=== PATIENT | male | born 1980 | race African-American/Black ===

== ENCOUNTER 2019-05-14 17:21 | Emergency (ER) | payer SELFPAY ==
[~2019-05-14] VITALS: Ht 180.3 cm; Wt 108.9 kg
--- NOTE | 2019-05-14 17:20 | NUR ---
ED Nurse Note: patient brought in by ambulance 68 for c/o congestion, fatigue. pt states he took ecstasy pills about 5 hours ago. upon triage, pt also noted with bp 190/100. pt is ambulatory, alert x4.
[2019-05-14 17:21] VITALS: BP 190/100
--- NOTE | 2019-05-14 17:46 | NUR ---
ED Nurse Note: blood sample sent down to lab
[2019-05-14 17:52] VITALS: BP 170/105
--- NOTE | 2019-05-14 17:59 | NUR ---
ED Nurse Note: X RAY BEING TAKEN AT BEDSIDE
[2019-05-14 18:08] VITALS: BP 149/86
[2019-05-14 18:11] LABS: ANION GAP 13 mmol/L (5-15); BLOOD UREA NITROGEN 16 mg/dL (7-18); CALCIUM 9.5 MG/DL (8.5-10.1); CARBON DIOXIDE 23 MMOL/L (21-32); CHLORIDE 101 MMOL/L (98-107); CREATININE 1.3 MG/DL (0.55-1.30); POTASSIUM 4.5 MMOL/L (3.5-5.1); SODIUM 137 MMOL/L (136-145)
[2019-05-14 18:20] LABS: ALANINE AMINOTRANSFERASE 58 U/L (12-78); ALBUMIN 4.2 G/DL (3.4-5.0); ALKALINE PHOSPHATASE 67 U/L (46-116); ASPARTATE AMINO TRANSFERASE 52 U/L (15-37); BASOPHILS % (AUTO) 1.9 % (0.0-2.0); BILIRUBIN,TOTAL 0.6 MG/DL (0.2-1.0); CREATINE KINASE 492 U/L (26-308); EOSINOPHILS % (AUTO) 0.2 % (0.0-3.0); HEMATOCRIT 45.4 % (42.0-52.0); HEMOGLOBIN 14.1 G/DL (14.2-18.0); LYMPHOCYTES % (AUTO) 13.8 % (20.0-45.0); MEAN CORPUSCULAR VOLUME 88 FL (80-99); MONOCYTES % (AUTO) 5.3 % (1.0-10.0); NEUTROPHILS % (AUTO) 78.8 % (45.0-75.0); PLATELET COUNT 187 K/UL (150-450); RED BLOOD COUNT 5.13 M/UL (4.70-6.10); RED CELL DISTRIBUTION WIDTH 12.6 % (11.6-14.8); WHITE BLOOD COUNT 6.2 K/UL (4.8-10.8)
[2019-05-14] MEDS ORDERED: ZITHROMAX250 MG ORAL (18:44)
--- NOTE | 2019-05-14 18:50 | NUR ---
ED Nurse Note: uirine sample sent to lab
[2019-05-14 18:54] VITALS: BP 144/90
--- NOTE | 2019-05-14 18:54 | NUR ---
ER DISCHARGE NOTE: Patient is cleared to be discharged per ERMD, pt is aox4, on room air, with stable vital signs. pt was given dc and prescription instructions, pt was able to verbalize understanding, pt id band and iv site removed without complications. pt is able to ambulate with steady gait. pt took all belongings.
--- NOTE | 2019-05-14 19:12 | Emergency Room Report ---
History of Present Illness General Chief Complaint: Hypertension Source: Patient, EMS Present Illness HPI Patient is a 38-year-old male presents after increased chest tightness. Reports having increased sore throat nonproductive cough. He reports having recent use of ecstasy. Reports feeling tired and sleepy. Denies any recent trauma. He denies vomiting. Allergies: Coded Allergies: No Known Allergies (Unverified , 05/14/19) COVID-19 Screening Contact w/high risk pt: No Recent Travel to affected area: No Experienced COVID-19 symptoms?: No Patient History Reviewed Nursing Documentation: PMH: Agreed; PSxH: Agreed Nursing Documentation-PM Past Medical History: No Stated History Review of Systems All Other Systems: negative except mentioned in HPI Physical Exam Vital Signs Date Time Temp Pulse Resp B/P (MAP) Pulse Ox O2 Delivery O2 Flow Rate FiO2 05/14/19 17:15 99.9 91 18 194/119 (144) 98 Room Air General Appearance: well appearing, no apparent distress, alert, GCS 15 Head: normocephalic, atraumatic ENT: hearing grossly normal, normal voice Neck: full range of motion, supple Respiratory: lungs clear, normal breath sounds, no respiratory distress, speaking full sentences Cardiovascular #1: normal inspection, regular rate, rhythm, no edema Gastrointestinal: normal inspection, soft Musculoskeletal: normal inspection, no calf tenderness Neurologic: alert, motor strength/tone normal, food service aide III-XII nml as tested, oriented x3, normal gait Psychiatric: normal inspection, mood/affect normal Skin: no rash Medical Decision Making Diagnostic Impression: Primary Impression: Upper respiratory infection ER Course Patient presented for sore throat. Differential included but was not limited to anemia, pneumonia, pneumothorax, myocardial infarction, pericardial effusion , congestive heart failure, acidosis. EKG interpreted by me showed normal sinus rhythm without acute ST or T wave changes. Chest x-ray 1 view interpreted by me showed normal cardiac size without evident infiltrate. Patient's laboratory testing showed slight lymphopenia with normal white blood count. Patient was advised laboratory findings. Patient's pupils did not appear to be dilated he is not tachycardic. Patient was noted to have symptoms consistent with a viral respiratory infection. Patient was given azithromycin prescription. Patient was advised to self quarantine. Was advised to return if began having fever increased difficulty breathing or other concerns. The patient is advised to follow up with primary care doctor for recheck. Patient is advised to return if any worsening condition or if any changes in status that are concerning. Laboratory Tests Test 05/14/19 17:35 White Blood Count 6.2 K/UL (4.8-10.8) Red Blood Count 5.13 M/UL (4.70-6.10) Hemoglobin 14.1 G/DL (14.2-18.0) L Hematocrit 45.4 % (42.0-52.0) Mean Corpuscular Volume 88 FL (80-99) Mean Corpuscular Hemoglobin 27.5 PG (27.0-31.0) Mean Corpuscular Hemoglobin Concent 31.1 G/DL (32.0-36.0) L Red Cell Distribution Width 12.6 % (11.6-14.8) Platelet Count 187 K/UL (150-450) Mean Platelet Volume 8.9 FL (6.5-10.1) Neutrophils (%) (Auto) 78.8 % (45.0-75.0) H Lymphocytes (%) (Auto) 13.8 % (20.0-45.0) L Monocytes (%) (Auto) 5.3 % (1.0-10.0) Eosinophils (%) (Auto) 0.2 % (0.0-3.0) Basophils (%) (Auto) 1.9 % (0.0-2.0) Sodium Level 137 MMOL/L (136-145) Potassium Level 4.5 MMOL/L (3.5-5.1) Chloride Level 101 MMOL/L (98-107) Carbon Dioxide Level 23 MMOL/L (21-32) Anion Gap 13 mmol/L (5-15) Blood Urea Nitrogen 16 mg/dL (7-18) Creatinine 1.3 MG/DL (0.55-1.30) Estimated Glomerular Filtration Rate > 60 mL/min (>60) Glucose Level 117 MG/DL (74-106) H Calcium Level 9.5 MG/DL (8.5-10.1) Total Bilirubin 0.6 MG/DL (0.2-1.0) Aspartate Amino Transferase (AST) 52 U/L (15-37) H Alanine Aminotransferase (ALT) 58 U/L (12-78) Alkaline Phosphatase 67 U/L (46-116) Total Creatine Kinase 492 U/L (26-308) H Troponin I 0.000 ng/mL (0.000-0.056) Total Protein 8.2 G/DL (6.4-8.2) Albumin 4.2 G/DL (3.4-5.0) Globulin 4.0 g/dL Albumin/Globulin Ratio 1.0 (1.0-2.7) Last Vital Signs Date Time Temp Pulse Resp B/P (MAP) Pulse Ox O2 Delivery O2 Flow Rate FiO2 05/14/19 18:54 99.6 86 17 144/90 98 Room Air Status: improved Disposition: HOME, SELF-CARE Condition: Stable Scripts Azithromycin* (ZITHROMAX*) 250 Mg Tablet 250 MG ORAL DAILY, #6 TAB 0 Refills Take two tables once daily for 1 day, then one tablet once daily for 4 days. Prov: Vern Izaguirre MD 05/14/19 Referrals: NOT CHOSEN [facility]/,REFERRING (PCP) Patient Instructions: Upper Respiratory Infection, Adult Additional Instructions: Self quarantine. Follow up for recheck with your doctor. Return if increased shortness of breath. Vern Izaguirre MD May 14, 2019 19:12
[2019-05-14 20:07] LABS: APPEARANCE,URINE CLEAR; BILIRUBIN, URINE NEGATIVE (NEGATIVE); COLOR,URINE PALE YELLOW; GLUCOSE, URINE (UA) NEGATIVE (NEGATIVE); KETONES,URINE NEGATIVE (NEGATIVE); LEUKOCYTE ESTERASE ,URINE 1+ (NEGATIVE); NITRITE,URINE NEGATIVE (NEGATIVE); PH,URINE 6 (4.5-8.0); PROTEIN,URINE 1+ (NEGATIVE); UROBILINOGEN,URINE NORMAL MG/DL (0.0-1.0)
--- NOTE | 2019-05-15 10:35 | Diagnostic Imaging Report ---
Indication: Dyspnea Comparison: None A single view chest radiograph was obtained. Findings: Cardiomediastinal appearance is within normal limits for age. The lungs are clear. Pulmonary vascularity is appropriate. The diaphragmatic contour is smooth and costophrenic angles are sharp. No pleural effusions are identified. The bones are unremarkable. Impression: No acute findings
== END 2019-05-14 18:54 | disposition home or self-care (01) ==
LOC: EDBD 17:21 → EMR 17:40
DX: J06.9 Acute upper respiratory infection, unspecified (principal); D72.810 Lymphocytopenia
CPT/HCPCS: 36415; 71045; 80053; 80307; 81003; 82550; 84484; 85025; 87086; 93005; 99283